=== PATIENT | female | born 1990 | race Caucasian/White ===

== ENCOUNTER 2018-11-01 17:52 | Emergency (ER) | payer BC ==
[2018-11-01 17:56] VITALS: BP 121/67; PULSE 85; TEMP 98.3; BMI 25.0
[2018-11-01 18:17] LABS: HCG,QUALITATIVE URINE Negative
[2018-11-01 18:22] LABS: URINE APPEARANCE Cloudy; URINE BILIRUBIN Negative (NEGATIVE); URINE COLOR Yellow; URINE GLUCOSE (UA) 3+ (NEGATIVE); URINE KETONE 1+ (NEGATIVE); URINE LEUK ESTERASE 1+ (NEGATIVE); URINE NITRITE Negative (NEGATIVE); URINE PROTEIN 1+ (NEGATIVE); URINE UROBILINOGEN 0.2 (0.2-1.0)
[2018-11-01 18:34] LABS: URINE BACTERIA 4+ /hpf (NEGATIVE); URINE RBC 20-40 /hpf (0-3); URINE WBC >100 (0-5)
--- NOTE | 2018-11-01 18:43 | PDOC ---
History of Present Illness - General History Source: Patient Exam Limitations: No Limitations - History of Present Illness Initial Comments: 11/01/18 18:44 The patient is a 28 year old female, with a significant past medical history of Type 1 Diabetes (on medication and insulin pump on her arm) who presents to the emergency department with pelvic pain associated with nausea since 3am this morning. The patient reports she went to the bathroom and noticed her urine was bright orange and brown in color. The patient notes she went to Urgent Care in the morning, got a simple urinalysis done, and was told to go to the ED. The patient notes her last menstrual period was a week ago. The patient denies chest pain, shortness of breath, headache or dizziness. The patient denies fever, chills, nausea, vomit, diarrhea or constipation. Allergies: NKDA Past surgical history: None reported Social history: None reported <Pennie Skinner - Last Filed: 11/01/18 18:43> <Tony Lin - Last Filed: 11/01/18 19:00> - General Chief Complaint: Urinary Problem Stated Complaint: BLOOD IN URINE /PAIN Time Seen by Provider: 11/01/18 18:19 Past History <Pennie Skinner - Last Filed: 11/01/18 18:43> - Past Medical History COPD: No Diabetes: Yes - Suicide/Smoking/Psychosocial Hx Smoking History: Never smoked Hx Alcohol Use: Yes (OCASIONAL) Drug/Substance Use Hx: No <Tony Lin - Last Filed: 11/01/18 19:00> - Past Medical History Allergies/Adverse Reactions: Allergies Allergy/AdvReac Type Severity Reaction Status Date / Time No Known Allergies Allergy Verified 11/01/18 17:53 Home Medications: Ambulatory Orders Insulin Pump [Insulin Pump - (Nf)] 1 each IV ASDIR 11/01/18 Nitrofurantoin Monohyd/M-Cryst [Macrobid -] 100 mg PO BID #14 capsule 11/01/18 Review of Systems - Review of Systems Able to Perform ROS?: Yes Comments:: 11/01/18 18:45 A complete review of 10 out of 10 review of systems is taken and is negative apart from what is previously mentioned below and in the HPI. All Other Systems: Reviewed and Negative <Pennie Skinner - Last Filed: 11/01/18 18:43> *Physical Exam - Vital Signs Last Vital Signs Temp Pulse Resp BP Pulse Ox 98.3 F 85 16 121/67 99 11/01/18 17:53 11/01/18 17:53 11/01/18 17:53 11/01/18 17:53 11/01/18 17:53 - Physical Exam Comments: 11/01/18 18:45 Vitals: Triage Vital signs reviewed General Appearance: no acute distress, well nourished well developed, Chest Wall: Nontender Cardiac: Regular rate and rhythm, no murmurs, no rubs, no gallops, Lungs: Clear to auscultation bilateral, good air movement bilaterally, Abdomen: (+) mild suprapubic tenderness. Soft, nondistended, normal bowel sounds, nontender to palpation Rectal: Exam deferred Extremities: Full range of motion to all extremities, no cyanosis, clubbing, or edema Skin: Warm and dry, no rashes or lesions, no petechiae Neuro: AOX3; Cranial Nerves 2-12 grossly intact, Strength intact to all extremities, Sensation intact to all extremities Psych: normal mood, normal affect <Pennie Skinner - Last Filed: 11/01/18 18:43> - Vital Signs Last Vital Signs Temp Pulse Resp BP Pulse Ox 98.3 F 85 16 121/67 99 11/01/18 17:53 11/01/18 17:53 11/01/18 17:53 11/01/18 17:53 11/01/18 17:53 <Tony Lin - Last Filed: 11/01/18 19:00> Moderate Sedation - Procedure Monitoring Vital Signs: Procedure Monitoring Vital Signs Temperature 98.3 F 11/01/18 17:53 Pulse Rate 85 11/01/18 17:53 Respiratory Rate 16 11/01/18 17:53 Blood Pressure 121/67 11/01/18 17:53 O2 Sat by Pulse Oximetry (%) 99 11/01/18 17:53 <Pennie Skinner - Last Filed: 11/01/18 18:43> - Procedure Monitoring Vital Signs: Procedure Monitoring Vital Signs Temperature 98.3 F 11/01/18 17:53 Pulse Rate 85 11/01/18 17:53 Respiratory Rate 16 11/01/18 17:53 Blood Pressure 121/67 11/01/18 17:53 O2 Sat by Pulse Oximetry (%) 99 11/01/18 17:53 <Tony Lin - Last Filed: 11/01/18 19:00> ED Treatment Course - ADDITIONAL ORDERS Additional order review: Laboratory Results 11/01/18 17:56 Urine Color Yellow Urine Appearance Cloudy Urine pH 6.0 Ur Specific [place] 1.020 Urine Protein 1+ H Urine Glucose (UA) 3+ H Urine Ketones 1+ H Urine Blood 3+ H Urine Nitrite Negative Urine Bilirubin Negative Urine Urobilinogen 0.2 Ur Leukocyte Esterase 1+ H Urine RBC 20-40 Urine WBC >100 Urine Bacteria 4+ Urine HCG, Qual Negative <Pennie Skinner - Last Filed: 11/01/18 18:43> - ADDITIONAL ORDERS Additional order review: Laboratory Results 11/01/18 17:56 Urine Color Yellow Urine Appearance Cloudy Urine pH 6.0 Ur Specific [place] 1.020 Urine Protein 1+ H Urine Glucose (UA) 3+ H Urine Ketones 1+ H Urine Blood 3+ H Urine Nitrite Negative Urine Bilirubin Negative Urine Urobilinogen 0.2 Ur Leukocyte Esterase 1+ H Urine RBC 20-40 Urine WBC >100 Urine Bacteria 4+ Urine HCG, Qual Negative <Tony Lin - Last Filed: 11/01/18 19:00> Medical Decision Making - Medical Decision Making 11/01/18 18:53 History and examination consistent with cystitis patient states that her serum glucoses have been slightly out of control she is a type I diabetic with an insulin pump She plans of following up with her doctor this week We'll discharge her with course of Macrobid Findings, the need for follow-up and strict return instructions discussed with patient. 11/01/18 19:00 <Tony Lin - Last Filed: 11/01/18 19:00> *DC/Admit/Observation/Transfer - Attestations Scribe Attestion: 11/01/18 18:46 Documentation prepared by Pennie Skinner, acting as medical office specialist for Tony Lin MD, <Pennie Skinner - Last Filed: 11/01/18 18:43> - Discharge Dispostion Decision to Admit order: No <Tony Lin - Last Filed: 11/01/18 19:00> Diagnosis at time of Disposition: Cystitis - Discharge Dispostion Disposition: HOME Condition at time of disposition: Stable - Prescriptions Prescriptions: Nitrofurantoin Monohyd/M-Cryst [Macrobid -] 100 mg PO BID #14 capsule - Patient Instructions Printed Discharge Instructions: Acute Cystitis Additional Instructions: Drink plenty fluids. Take Macrobid as prescribed. Okay to take [id number] Tylenol Motrin as directed on package. Okay to take [id number] Azo as directed on package Return to the ED for any severe worsening symptoms or for any concerns Please follow-up with your doctor tomorrow to discuss your serum glucose is and insulin control - Post Discharge Activity Forms/Work/School Notes: Back to Work
== END 2018-11-01 19:04 | disposition home or self-care (01) ==
LOC: FER 17:52
DX: N30.91 Cystitis, unspecified with hematuria (principal); E10.9 Type 1 diabetes mellitus without complications
CPT/HCPCS: 81003; 81015; 84703; 87086; 87186; 99282-25